=== PATIENT | female | born 1935 | race African-American/Black ===

== ENCOUNTER 2023-05-26 09:39 | Inpatient (IN) | payer OTHER ==
[~2023-05-26] VITALS: Ht 157.5 cm; Wt 58.5 kg
[2023-05-26 09:50] VITALS: BP_SYST 171; PULSE 63; RESP 15; TEMP 97; O2SAT 98
[2023-05-26 10:28] LABS: BASOPHILS # (AUTO) 0.1 K/uL (0.0-0.2); BASOPHILS % (AUTO) 1.2 % (0.0-2.0); EOSINOPHILS # (AUTO) 0.1 K/uL (0.0-0.4); HEMATOCRIT 32.3 % (36-48); HEMOGLOBIN 10.5 g/dL (12.0-16.0); LYMPHOCYTES # (AUTO) 0.8 K/uL (1.0-5.5); LYMPHOCYTES % (AUTO) 13.5 % (20.5-51.5); MEAN CORPUSCULAR HEMOGLOBIN 28 pg (27-31); MEAN CORPUSCULAR HGB CONC 33 % (32-36); MEAN CORPUSCULAR VOLUME 85 fL (79.0-98.0); MONOCYTES # (AUTO) 0.7 K/uL (0.0-1.0); MONOCYTES % (AUTO) 11.9 % (1.7-9.3); NEUTROPHILS # (AUTO) 4.3 K/uL (1.8-7.7); NEUTROPHILS % (AUTO) 72.4 % (40.0-70.0); PLATELET COUNT (AUTO) 160 K/uL (130-430); RED BLOOD CELL COUNT(AUTO) 3.81 MIL/uL (4.2-6.2); RED CELL DISTRIBUTION WIDTH 18.5 % (9.0-15.0); WHITE BLOOD COUNT (AUTO) 5.9 K/uL (4.8-10.8)
[2023-05-26 10:37] LABS: BILIRUBIN,URINE NEGATIVE (NEGATIVE); BLOOD, URINE NEGATIVE (NEGATIVE); CLARITY/URINE CLEAR (CLEAR); COLOR,URINE YELLOW (YELLOW); GLUCOSE,URINE 3+ (NEGATIVE); KETONES,URINE NEGATIVE (NEGATIVE); LEUKOCYTE ESTERASE ,URINE NEGATIVE (NEGATIVE); NITRITE, URINE NEGATIVE (NEGATIVE); PH,URINE 5.5 (5.0-8.0); PROTEIN URINE 2+ (NEGATIVE); UROBILINOGEN,URINE 0.2 (0.2-1.0)
[2023-05-26 10:47] LABS: BACTERIA,URINE RARE /HPF (None Seen); MUCUS,URINE 1+ /LPF (None Seen); RBC,URINE 0-3 /HPF (0-3); WBC,URINE 0-3 /HPF (0-3)
[2023-05-26] MEDS ORDERED: DAPA10TA PO (10:53)
[2023-05-26] MEDS ORDERED: HYDR-4038 PO (10:53)
[2023-05-26] MEDS ORDERED: FURO20TA4 PO (10:53)
[2023-05-26] MEDS ORDERED: LOVA40TA75 PO (10:53)
[2023-05-26] MEDS ORDERED: METO25TA6 PO (10:53)
[2023-05-26] MEDS ORDERED: AMLO10TA88 PO (10:53)
[2023-05-26] MEDS ORDERED: FERR325T30 PO (10:53)
[2023-05-26] MEDS ORDERED: FEBU40TA3 PO (10:53)
[2023-05-26] MEDS ORDERED: ALLO100T PO (10:53)
[2023-05-26 11:12] LABS: ALANINE AMINOTRANSFERASE 27 U/L (12-78); ALBUMIN 3.4 g/dL (3.4-4.8); ANION GAP 8 (5-15); ASPARTATE AMINOTRANSFERASE 20 U/L (10-37); BILIRUBIN,DIRECT 0.1 mg/dL (0.0-0.3); CARBON DIOXIDE 18 mmol/L (23-29); CHLORIDE 112 mmol/L (98-107); CREATININE 2.24 mg/dL (0.55-1.30); GLUCOSE 85 mg/dL (74-106); LIPASE 61 U/L (16-77); PHOSPHORUS 4.1 mg/dL (2.7-4.5); SODIUM SERUM 138 mmol/L (136-145); TOTAL BILIRUBIN 0.4 mg/dL (0.0-1.0); TOTAL PROTEIN, SERUM 7.9 g/dL (6.4-8.3); UREA NITROGEN, BLOOD 37 mg/dL (8-21)
[2023-05-26 11:17] LABS: POTASSIUM 5.9 mmol/L (3.5-5.1)
[2023-05-26] MEDS: amLODIPine BESYLATE 10 MG TABLET PO ONE (11:31)
[2023-05-26] MEDS: DEXTROSE 50% JECT 50 ML DISP.SYRIN IVP ONE (11:42)
[2023-05-26] MEDS: CALCIUM GLUC 1 GM/100ML-NACL 100 ML IV ONE (11:43)
[2023-05-26] MEDS: SODIUM ZIRCONIUM CYCLOSILICATE 10 GM POWD.PACK PO ONE (11:43)
[2023-05-26] MEDS: INSULIN REGULAR, HUMAN 10 UNITS/0.1 ML, 3 ML VIAL IVP ONE (11:44)
[2023-05-26] MEDS ORDERED: HYDROCHLOROTHIAZIDE 12.5 MG CAPSULE (HCTZ) PO ONE (12:30)
[2023-05-26] MEDS: ALLOPURINOL 100 MG TABLET (ZYLOPRIM) PO ONE (13:54)
[2023-05-26] MEDS: D5/0.45 NS 1,000 ML IV SCH (14:05)
[2023-05-26] MEDS: SODIUM POLYSTYRENE SULFONATE 15 GM/60 ML UDBTL PO ONE ×2 (14:06→22:08)
[2023-05-26] MEDS: hydrALAZINE HCL 25 MG TABLET PO SCH (14:51)
[2023-05-26 16:51] VITALS: BP_SYST 184; PULSE 74; RESP 16; TEMP 99
[2023-05-26] MEDS: hydrALAZINE HCL 20 MG/ML VIAL IVP PRN (18:53)
[2023-05-26 19:05] LABS: ANION GAP 11 (5-15); CARBON DIOXIDE 16 mmol/L (23-29); CHLORIDE 112 mmol/L (98-107); CREATININE 1.98 mg/dL (0.55-1.30); GLUCOSE 122 mg/dL (74-106); SODIUM SERUM 139 mmol/L (136-145); UREA NITROGEN, BLOOD 33 mg/dL (8-21)
[2023-05-26 20:00] VITALS: O2SAT 97
[2023-05-26 20:02] VITALS: BP_SYST 157; PULSE 87; RESP 18; TEMP 100; O2SAT 97
[2023-05-26 20:04] LABS: POTASSIUM 5.8 mmol/L (3.5-5.1)
[2023-05-26] MEDS: FUROSEMIDE 20 MG TABLET PO SCH (20:43)
[2023-05-26] MEDS: METOPROLOL TARTRATE 25 MG TABLET PO SCH (20:44)
[2023-05-26] MEDS: ACETAMINOPHEN 325 MG TABLET PO PRN (20:48)
[2023-05-27] VITALS (7 sets, daily range): BP systolic 124–155; PULSE 73–89; RESP 15–18; TEMP 98.1–98.6; O2SAT 96–99
[2023-05-27 06:02] LABS: ANION GAP 16 (5-15); CALCIUM 8.6 mg/dL (8.4-11.0); CARBON DIOXIDE 15 mmol/L (23-29); CHLORIDE 110 mmol/L (98-107); CREATININE 2.04 mg/dL (0.55-1.30); GLUCOSE 126 mg/dL (74-106); POTASSIUM 4.7 mmol/L (3.5-5.1); SODIUM SERUM 141 mmol/L (136-145); UREA NITROGEN, BLOOD 31 mg/dL (8-21)
[2023-05-27 06:05] LABS: BASOPHILS % (AUTO) 0.7 % (0.0-2.0); EOSINOPHILS % (AUTO) 0.4 % (0.0-4.0); HEMATOCRIT 32.7 % (36-48); HEMOGLOBIN 10.4 g/dL (12.0-16.0); LYMPHOCYTES # (AUTO) 0.6 K/uL (1.0-5.5); LYMPHOCYTES % (AUTO) 11.3 % (20.5-51.5); MEAN CORPUSCULAR HEMOGLOBIN 27 pg (27-31); MEAN CORPUSCULAR HGB CONC 32 % (32-36); MEAN CORPUSCULAR VOLUME 85 fL (79.0-98.0); MONOCYTES # (AUTO) 0.6 K/uL (0.0-1.0); MONOCYTES % (AUTO) 10.8 % (1.7-9.3); NEUTROPHILS # (AUTO) 4.2 K/uL (1.8-7.7); NEUTROPHILS % (AUTO) 76.8 % (40.0-70.0); PLATELET COUNT (AUTO) 153 K/uL (130-430); RED BLOOD CELL COUNT(AUTO) 3.84 MIL/uL (4.2-6.2); RED CELL DISTRIBUTION WIDTH 18.5 % (9.0-15.0); WHITE BLOOD COUNT (AUTO) 5.5 K/uL (4.8-10.8)
[2023-05-27] MEDS ORDERED: LOVASTATIN 20 MG TABLET PO SCH (09:00)
[2023-05-27] MEDS: ALLOPURINOL 100 MG TABLET (ZYLOPRIM) PO SCH (09:57)
[2023-05-27] MEDS: amLODIPine BESYLATE 10 MG TABLET PO SCH (09:57)
[2023-05-27] MEDS: FERROUS SULFATE 325 MG TABLET.DR PO SCH (09:57)
[2023-05-27] MEDS: PANTOPRAZOLE SODIUM 40 MG/VIAL (PROTONIX) IVP SCH (09:58)
[2023-05-27] MEDS: ATORVASTATIN 10 MG TABLET PO SCH (09:58)
[2023-05-27] MEDS ORDERED: IPRATROPIUM/ALBUTEROL SULFATE 3 ML AMPUL.NEB (DUONEB) INH PRN (13:45)
[2023-05-27] MEDS: METOPROLOL TARTRATE 25 MG TABLET PO SCH (21:25)
[2023-05-28] VITALS: BP_SYST 136; PULSE 64; RESP 18; TEMP 98.3; O2SAT 99
[2023-05-28 05:31] LABS: BASOPHILS % (AUTO) 0.8 % (0.0-2.0); EOSINOPHILS # (AUTO) 0.1 K/uL (0.0-0.4); HEMATOCRIT 30.5 % (36-48); HEMOGLOBIN 9.9 g/dL (12.0-16.0); LYMPHOCYTES # (AUTO) 0.8 K/uL (1.0-5.5); LYMPHOCYTES % (AUTO) 18.2 % (20.5-51.5); MEAN CORPUSCULAR HEMOGLOBIN 28 pg (27-31); MEAN CORPUSCULAR HGB CONC 33 % (32-36); MEAN CORPUSCULAR VOLUME 84 fL (79.0-98.0); MONOCYTES # (AUTO) 0.6 K/uL (0.0-1.0); MONOCYTES % (AUTO) 12.4 % (1.7-9.3); NEUTROPHILS % (AUTO) 66.6 % (40.0-70.0); PLATELET COUNT (AUTO) 153 K/uL (130-430); RED BLOOD CELL COUNT(AUTO) 3.61 MIL/uL (4.2-6.2); RED CELL DISTRIBUTION WIDTH 18.2 % (9.0-15.0); WHITE BLOOD COUNT (AUTO) 4.5 K/uL (4.8-10.8)
[2023-05-28 05:48] LABS: ANION GAP 13 (5-15); CALCIUM 8.5 mg/dL (8.4-11.0); CARBON DIOXIDE 17 mmol/L (23-29); CHLORIDE 111 mmol/L (98-107); CREATININE 2.15 mg/dL (0.55-1.30); GLUCOSE 114 mg/dL (74-106); POTASSIUM 4.5 mmol/L (3.5-5.1); SODIUM SERUM 141 mmol/L (136-145); UREA NITROGEN, BLOOD 31 mg/dL (8-21)
[2023-05-28 07:49] VITALS: BP_SYST 149; PULSE 66; RESP 18; TEMP 98.4; O2SAT 99
[2023-05-28 08:00] VITALS: O2SAT 94
[2023-05-28 11:52] VITALS: BP_SYST 147; PULSE 60; RESP 16; TEMP 98.1; O2SAT 99
[2023-05-28] MEDS ORDERED: SODI5POW2 PO (12:12)
[2023-05-28] MEDS ORDERED: HYDR-4038 PO (12:12)
[2023-05-28] MEDS: SODIUM ZIRCONIUM CYCLOSILICATE 10 GM POWD.PACK PO SCH (12:14)
[2023-05-28 14:23] VITALS: BP_SYST 147; PULSE 60; RESP 16; TEMP 98.1; O2SAT 99
== END 2023-05-28 15:30 | disposition home or self-care (01) | DRG 640 ==
LOC: SED 09:39 → STU 13:41
PROVIDERS: ADMIT Specialist; ATTEND Specialist
DX: E87.5 Hyperkalemia (principal); N17.0 Acute kidney failure with tubular necrosis; E86.0 Dehydration; E78.5 Hyperlipidemia, unspecified; I12.9 Hypertensive chronic kidney disease with stage 1 through stage 4 chronic kidney disease, or unspecified chronic kidney disease; E11.22 Type 2 diabetes mellitus with diabetic chronic kidney disease; N18.31 Chronic kidney disease, stage 3a; J43.9 Emphysema, unspecified; R91.8 Other nonspecific abnormal finding of lung field; M10.9 Gout, unspecified; Z85.3 Personal history of malignant neoplasm of breast; Z88.0 Allergy status to penicillin; Z88.2 Allergy status to sulfonamides; Z79.899 Other long term (current) drug therapy
CPT/HCPCS: 36415; 71045; 71250-TC; 76770; 80048; 80076; 81000; 81001; 81015; 83690; 83735; 84100; 84550; 85025; 93005; 99285; C9113; G0378; J0360; J1815